=== PATIENT | male | born 1980 | race Caucasian/White ===

== ENCOUNTER 2020-11-13 22:04 | Emergency (ER) | payer SELFPAY ==
[~2020-11-13] VITALS: Ht 165.1 cm; Wt 70.3 kg
[2020-11-13 22:04] VITALS: BP 153/92
== END 2020-11-14 05:36 | disposition home or self-care (01) ==
LOC: ER 22:06
DX: F10.129 Alcohol abuse with intoxication, unspecified (principal); Y90.9 Presence of alcohol in blood, level not specified